=== PATIENT | male | born 1990 | race Caucasian/White ===

== ENCOUNTER 2019-11-26 20:17 | Emergency (ER) | payer MEDICAID ==
[~2019-11-26] VITALS: Ht 182.9 cm; Wt 143.8 kg
[2019-11-26 20:19] VITALS: Ht 182.9 cm; Wt 143.8 kg
[2019-11-26 23:04] LABS: BASOPHIL % 0.3 % (0-2); PLATELET COUNT 257 x10^3mcL (130-400); RED CELL DISTRIBUTION WIDTH 12.9 % (11.5-14.5)
[2019-11-26 23:29] LABS: CALCIUM 8.9 mg/dL (8.5-10.1); CARBON DIOXIDE 26.4 mmol/L (21-32); CHLORIDE SERUM 104 mmol/L (98-107); GFR1 > 60 mL/min; GLUCOSE SERUM 88 mg/dL (74-106); POTASSIUM SERUM 4.1 mmol/L (3.5-5.1); SODIUM SERUM 142 mmol/L (136-145)
[2019-11-26 23:31] LABS: ALKALINE PHOSPHATASE 127 U/L (46-116); ALT/SGPT 130 U/L (16-63); AST/SGOT 84 U/L (15-37); TOTAL PROTEIN, SERUM 7.8 g/dL (6.4-8.2)
[2019-11-26 23:56] VITALS: BP 113/70
== END 2019-11-26 23:56 | disposition home or self-care (01) ==
LOC: ED 20:17
PROVIDERS: Emergency Medicine
DX: R07.89 Other chest pain (principal); R51 Headache; E78.00 Pure hypercholesterolemia, unspecified; M54.2 Cervicalgia
CPT/HCPCS: 36415; Q0092